=== PATIENT | male | born 2000 | race Caucasian/White ===

== ENCOUNTER 2022-05-26 03:25 | Emergency (ER) | payer OTHER ==
[~2022-05-26] VITALS: Ht 180.3 cm; Wt 75.0 kg
[2022-05-26 03:46] VITALS: BP 134/58
--- NOTE | 2022-05-26 04:06 | NUR ---
PT REPRORTS AFTER TRIAGE THAT HE FEELS BETTER NOW THAT THE TYLENOL HE TOOK AT HOME HAS BROUGHT HIS FEVER DOWN TO 100.4 PT REPORTED HE WAS GOING TO LEAVE THE ED GO GET LIQUID IV AND MOTRIN AT [facility] AND SELF HYDRATE . PT STATED HE WILL RETURN TO ER IF HE HAS ANY OTHER CONCERNS .
--- NOTE | 2022-05-26 04:37 | NUR ---
PT STATED HE WAS LEAVING AND LEFT
== END 2022-05-26 04:38 | disposition left against medical advice (07) ==
LOC: ER 03:26
DX: R50.9 Fever, unspecified (principal); Z53.21 Procedure and treatment not carried out due to patient leaving prior to being seen by health care provider